=== PATIENT | male | born 1975 | race Two or more races ===

== ENCOUNTER 2017-12-16 18:26 | Emergency (ER) | payer OTHER ==
[~2017-12-16] VITALS: Ht 172.7 cm; Wt 88.0 kg
--- NOTE | 2017-12-16 18:55 | NUR ---
PT AMBULATORY TO ER BED 11. HERE FOR WORSENING L FLANK PAIN X TODAY. PT WAS AT AN URGENT CARE TODAY AND WAS ADVISED TO GO TO ER TO R/O KIDNEY STONES. VSS. AWAITING MD PIERCE.
--- NOTE | 2017-12-16 19:04 | NUR ---
DR MOE AT BEDSIDE FOR EVAL.
[2017-12-16 19:15] LABS: APPEARANCE,URINE Clear (CLEAR); BILIRUBIN,URINE Negative (NEGATIVE); BLOOD, URINE Moderate Ery/uL (NEGATIVE); COLOR,URINE Yellow (YELLOW); KETONES,URINE Negative (NEGATIVE); LEUKOCYTE ESTERASE ,URINE Negative (NEGATIVE); NITRITE, URINE Negative (NEGATIVE); PROTEIN,URINE Negative (NEGATIVE); UGLUCOSE Negative (NEGATIVE); UROBILINOGEN,URINE 0.2 EU/dL (0.2)
[2017-12-16] MEDS ORDERED: ONDANSETRON HCL/PF 4 MG/2 ML VIAL ONE (19:18)
[2017-12-16] MEDS ORDERED: KETOROLAC TROMETHAMINE INJ 30 MG/ML VIAL ONE (19:18)
[2017-12-16 19:25] LABS: BACTERIA,URINE None seen /HPF (None Seen); SQUAMOUS EPITHELIAL CELL,UR Few /HPF (None Seen); WBC,URINE 0-2 /HPF (0-3)
[2017-12-16] MEDS: KETOROLAC TROMETHAMINE INJ 30 MG/ML VIAL IV ONE (19:27)
[2017-12-16] MEDS: IV NS 0.9% 1,000 ML BAG IV ONE (19:27)
[2017-12-16] MEDS: ONDANSETRON HCL/PF 4 MG/2 ML VIAL IVP ONE (19:28)
--- NOTE | 2017-12-16 19:28 | NUR ---
RECEIVED REPORT FROM DAIANA BEAL FOR [facility]. PT RESTING IN BED WITH NO S/S OF DISTRESS NOTED. WILL CONTINUE TO MONITOR PT.
--- NOTE | 2017-12-16 21:18 | NUR ---
Patient discharged to home in stable condition. Written and verbal after care instructions given. Patient verbalizes understanding of instruction.IV removed. Catheter intact and site benign. Pressure and 4x4 applied to site. No bleeding noted.
[2017-12-16 21:19] VITALS: BP 128/81
== END 2017-12-16 21:21 | disposition home or self-care (01) ==
LOC: ER 18:35
DX: N13.2 Hydronephrosis with renal and ureteral calculous obstruction (principal); R11.0 Nausea; F10.10 Alcohol abuse, uncomplicated; Y90.9 Presence of alcohol in blood, level not specified
CPT/HCPCS: 74176; 81001; 96374; 96375; 99285; A4606; J1885; J2405; J7030; Z7610; 81000-TC

== ENCOUNTER 2023-02-03 20:13 | Emergency (ER) | payer OTHER ==
[~2023-02-03] VITALS: Ht 172.7 cm; Wt 87.1 kg
[2023-02-03] MEDS ORDERED: FAMO-131 PO (21:39)
[2023-02-03] MEDS ORDERED: BENZ1LOZ58 PO (21:39)
[2023-02-03 21:56] VITALS: BP 131/98; TEMP 97.9; O2SAT 99
== END 2023-02-03 21:53 | disposition home or self-care (01) ==
LOC: ER 20:28
DX: J40 Bronchitis, not specified as acute or chronic (principal); Z79.899 Other long term (current) drug therapy